=== PATIENT | female | born 1955 | race African-American/Black ===

== ENCOUNTER → 2016-12-05 | Outpatient (CLI) | payer OTHER ==
[~2016-12-05] VITALS: Ht 160 cm; Wt 101.2 kg
[~2016-12-05] MED LIST: GLUCOTROL5 MG PO; HUMALOG100 UNIT/1 SUBQ; LANTUS SUBQ; LISINOPRIL20 MG PO; LYRICA 50 MG50 MG PO; NABUMETONE 500500 M1 PO; PROTONIX 20 MG20 M1 PO; ZANAFLEX4 MG PO
--- NOTE | ~2016-12-05 | HPC ---
[facility] [place] [address] PAIN MANAGEMENT CONSULTATION Name: ERNESTO PALACIO [facility]#: [id number] Admission: 12/05/16 Attend Phys: Jerod Iglesias DO Discharge: Date of : 55 Report #: [id number] THIS REPORT FOR: //name// CC: Jerod Grimes DATE OF SERVICE: 12/05/2016 REFERRING PHYSICIAN: Dr. Salina Medina CHIEF COMPLAINT: Mid back pain, low back pain. HISTORY OF PRESENT ILLNESS: As you know, the patient is a 61-year-old female who reports long-standing mid back pain and low back pain. She indicates pain began on 04/26/2013. She denies injury or trauma that may have led to symptoms. She states she has been in physical therapy twice a week for a full 6 weeks. Despite this more traditional treatment option, the patient was not noted to have improvement in symptoms. Due to concerns of lack of improvement in symptoms, the patient was referred to our clinic. Apparently, imaging showed some changes within the lower portion of back and request was to review the patient's imaging and determine if other treatment options might be available. The patient indicates today pain is continuous, rhythmic and intermittent. Describes the pain as aching, pulling and pounding. Places current pain score at 8/10, daily average at 8-9/10, worst pain has been 8-9/10. The patient states that lifting causes continuous ache, sitting and doing nothing appears to improve pain. She has been referred to our service to discuss options for treatment for mid and low back pain. PAST MEDICAL HISTORY: 1. Diabetes mellitus type 2. 2. Hypertension. 3. Degenerative joint disease. 4. Osteoarthritis. 5. History of cervical cancer. 6. Chronic anemia. 7. Gastroesophageal reflux disease. PAST SURGICAL HISTORY: 1. Cholecystectomy. 2. Mastectomy. 3. Cervical conization. 4. Bilateral ankle surgery. SOCIAL HISTORY: The patient denies tobacco, IV or illicit drug use. She admits to occasional alcoholic beverage. She is a retired teacher. She is not [facility] [address] [place] [address] PAIN MANAGEMENT CONSULTATION Name: ERNESTO PALACIO [facility]#: [id number] Admission: 12/05/16 Attend Phys: Jerod Iglesias DO Discharge: Date of : 55 Report #: [id number] working, not receiving workmen's compensation nor is she trying to obtain disability benefits. She is unaccompanied at today's visit. REVIEW OF SYSTEMS: Positive for weight gain; fatigue; weakness; frequent and recurrent headaches; wearing corrective eyewear; blurred and double vision; cataracts; frequent and recurrent coughs; nocturia; changes in hair and nail texture; lightheadedness and dizziness; depression; insomnia; diabetes mellitus type 2, insulin-dependent; anemia; gastroesophageal reflux disease; hypertension; chronic mid and low back pain. All other review of systems negative per 12-point review of systems other than those listed in history of present illness. Pain impact score 58/70 indicating grifbsih-wu-jrrwex interference of daily activities secondary to pain. ALLERGIES: CODEINE. CURRENT MEDICATIONS: Lyrica 100 mg twice a day; vitamin D 50,000 units per week; pantoprazole 20 mg per day; lisinopril 20 mg twice a day; glipizide ER 5 mg twice a day; Humalog 5 units three times a day; Lantus 15 units nightly. 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 PHYSICAL EXAMINATION: VITAL SIGNS: Blood pressure 150/98, pulse 86, respiratory rate 18 and unlabored, the patient is 100% on room air. Height 5 feet 3 inches tall, weight 223 pounds, BMI calculated at 39.5. GENERAL: Well-developed, well-nourished, well-hydrated, morbidly obese 61-year-old female appearing her stated age. Placing current pain score at 8/10. HEENT: Normocephalic, atraumatic. Pupils are equal, round, and reactive to light. Extraocular muscles are intact. Sclerae are nonicteric without injection. NEUROLOGIC: Cranial nerves 2-12 grossly intact. Speech is fluent. The patient deemed a good historian. LUNGS: Clear. No wheezes, rhonchi or rales. CARDIOVASCULAR: Regular. No appreciable gallop or rub. ABDOMEN: Soft, obese, nontender, nondistended. EXTREMITIES: Show no clubbing, no cyanosis, no edema. MUSCULOSKELETAL: There is palpatory tenderness over the paraspinal musculature of lower lumbar spine and lower thoracic area. No spinous process tenderness. Seated straight leg raising negative. Supine straight leg raising negative. West test is negative. Modified Gaenslen's positive for only axial back pain, [facility] [address] [place] [address] PAIN MANAGEMENT CONSULTATION Name: ERNESTO PALACIO Room #: REG CL Sheyla#: [id number] Admission: 12/05/16 Attend Phys: Jerod Iglesias DO Discharge: Date of : 55 Report #: [id number] no radiation of symptoms. Ankle clonus negative. Babinski is negative. Deep tendon reflexes equal and symmetrical at patella and Achilles. ASSESSMENT: 1. Chronic low back pain. 2. Facet arthropathy of the lumbar spine. 3. Lumbosacral spondylosis without radicular symptoms. 4. Myofascial pain. 5. Chronic intractable pain. PLAN: 1. Based on today's physical exam and history the patient has provided, the description the patient uses in regards to pain as well as the distribution of symptoms and the findings on the MRI, which show gfis-wo-odkmmxam changes that are typical for age-related findings, the likely source of the patient's pain is myofascial in origin. She does have some facet changes that are typical in a morbidly obese female. The most profound findings at the L4-L5 and L5-S1 level was fairly classic for facet changes. We discussed with the patient that options for treatment could include the following treatment options. We discussed physical therapy, stretching exercises, core strengthening and a concerted effort at weight loss. The combination of all would be necessary to improve axial back pain issues. We discussed medication management with consistent nonsteroidal anti-inflammatory and a hopefully nonsedating muscle relaxant for the myofascial symptoms she is experiencing. We discussed intra-articular facet injections, medial branch nerve blocks, radiofrequency lesioning options as treatment and finally surgical options. After reviewing risks and benefits of all proposed treatment options, the patient chose to begin with conservative medical therapy and continue physical therapy. 2. The patient will be provided a prescription of nabumetone 500 mg dose 1 tab p.o. t.i.d. I have given the patient #90 tablets, advised the patient to take this with meals. I have given her this prescription with 2 refills. She is to watch for any side effects including worsening of blood pressure, lower extremity edema. If she notes any side effects as well as dyspepsia, she is to discontinue immediately and call for further instructions. Would recommend that she follows up with her primary care physician for baseline BUN and creatinine levels if she is going to remain on this medication for any length of time. 3. The patient was provided a prescription of tizanidine 4 mg dose 1 tab p.o. t.i.d. p.r.n. muscle spasms. I have given the patient #90 tablets, advised the patient to take the medication when her symptoms are related to muscle spasming. She is not to drive or operate heavy equipment while on this medication. She was advised this medication can cause somnolence, decrease in mental acuity, disorientation, confusion and mental slowing. 4. We will see the patient back in followup visit on an as needed basis. I believe conservative treatment in this patient's case would be most appropriate. It does not appear from the imaging that she has much in the way of major [address] [address] PAIN MANAGEMENT CONSULTATION Name: ERNESTO PALACIOYL Room #: REG [facility] Carrion#: [id number] Admission: 12/05/16 Attend Phys: Jerod Iglesias DO Discharge: Date of : 55 Report #: [id number] pathology in the lumbar or thoracic area. I recommend more conservative treatment option in her case. Certainly, intra-articular facet injections could be addressed as well as radiofrequency lesioning of the medial branch nerves of the lower lumbar spine if more conservative treatment is ineffective. If she wishes to move forward with these options, she can contact our clinic. 5. We wish to thank you for the opportunity to see the patient in consultation. We will keep you apprised of any other changes in medical therapy or interventional treatments to be addressed for her axial back pain. Again, we wish to thank you for the opportunity to see her in consultation. By: [id number] Jerod Iglesias DO /alycia
[2016-12-05 09:54] VITALS: BP 150/98
== END | disposition home or self-care (01) ==
LOC: PAIN 07:14
DX: M54.5 Low back pain (principal); E11.9 Type 2 diabetes mellitus without complications; I10 Essential (primary) hypertension; M19.90 Unspecified osteoarthritis, unspecified site; D64.9 Anemia, unspecified; K21.9 Gastro-esophageal reflux disease without esophagitis; Z85.41 Personal history of malignant neoplasm of cervix uteri; Z90.49 Acquired absence of other specified parts of digestive tract; Z98.890 Other specified postprocedural states; Z88.8 Allergy status to other drugs, medicaments and biological substances; Z97.4 Presence of external hearing-aid; Z68.39 Body mass index [BMI] 39.0-39.9, adult; M79.1 Myalgia; G89.29 Other chronic pain; F32.9 Major depressive disorder, single episode, unspecified